=== PATIENT | male | born 1945 ===

== ENCOUNTER 2018-03-25 06:30 | Day surgery (SDC) | payer MEDICARE, OTHER ==
[2018-03-25 07:03] VITALS: BMI 24.3
[2018-03-25] MEDS ORDERED: Lidocaine Hydrochloride 5 ML INJ ONE (08:29)
[2018-03-25] MEDS ORDERED: Propofol 10 mg/ml Inj (20 ML) ONE (08:29)
[2018-03-25] MEDS ORDERED: Lactated Ringer's 500 ML IV SCH (08:45)
[2018-03-25 09:21] VITALS: RESP 13
[2018-03-25 09:37] VITALS: TEMP 98
[2018-03-25 10:21] VITALS: BP 120/72; PULSE 74; O2SAT 99
== END 2018-03-25 10:00 | disposition home or self-care (01) ==
LOC: C.ENDO 06:30
PROVIDERS: ATTEND Internal Medicine Gastroenterology
DX: Z12.11 Encounter for screening for malignant neoplasm of colon (principal); D12.2 Benign neoplasm of ascending colon; K64.1 Second degree hemorrhoids; E78.5 Hyperlipidemia, unspecified
CPT/HCPCS: 45381; 45385; 88305; J2704; J7120